=== PATIENT | female | born 1970 | race Hispanic/Latino ===

== ENCOUNTER → 2024-08-08 | Day surgery (SDC) | payer OTHER ==
[~2024-08-08] MED LIST: GLYBURIDE5 MG PO; LIDOCAINE HCL 2% LOCAL INJ 5 ML SDV VIAL INJ ONE; METFORMIN HCL500 MG PO; MIDAZOLAM HCL 2 MG/2 ML VIAL ONE; MOUNJARO12.5 MG/0. SC; PROPOFOL IV EMULSION 10 MG/ML 20 ML VIAL ONE; TOUJEO SOL300 UNIT/1 SC
[2024-08-08] MEDS: LACTATED RINGER'S 1,000 ML ONE (15:28)
[2024-08-08] MEDS: DEXTROSE 5% 250ML 250 ML IV ONE (15:28)
[2024-08-08 17:35] VITALS: BP 116/71; PULSE 69; RESP 16; TEMP 98.2; O2SAT 97
== END | disposition home or self-care (01) ==
LOC: OR 14:53
PROVIDERS: ATTEND Internal Medicine Gastroenterology
DX: Z12.11 Encounter for screening for malignant neoplasm of colon (principal); D12.2 Benign neoplasm of ascending colon; K57.30 Diverticulosis of large intestine without perforation or abscess without bleeding; E11.9 Type 2 diabetes mellitus without complications; R03.0 Elevated blood-pressure reading, without diagnosis of hypertension; Z01.810 Encounter for preprocedural cardiovascular examination; Z79.84 Long term (current) use of oral hypoglycemic drugs; Z79.85 Long-term (current) use of injectable non-insulin antidiabetic drugs; Z79.4 Long term (current) use of insulin; Z79.1 Long term (current) use of non-steroidal anti-inflammatories (NSAID); Z86.73 Personal history of transient ischemic attack (TIA), and cerebral infarction without residual deficits
CPT/HCPCS: 36415; 45384; 81025; 82948; 93005; J2003; J2250; J2704; J7121